=== PATIENT | female | born 1975 | race Caucasian/White ===

== ENCOUNTER 2017-08-14 13:10 | Emergency (ER) | payer BC, SELFPAY ==
[2017-08-14 13:24] VITALS: BP 124/75; PULSE 94; RESP 20; TEMP 36.8; O2SAT 98; BMI 25.6
--- NOTE | 2017-08-14 13:25 | XR_ITS ---
XR finger LT min 2V CLINICAL INDICATION: Post traumatic pain ITS.REASON: SLAMMED IN VAN DOOR ORDERING PHYSICIAN: Lula Hinkle PATIENT AGE: 42 years COMPARISON: None FINDINGS: No fracture or dislocation. No bony or joint abnormality. IMPRESSION: Negative left index finger
--- NOTE | 2017-08-14 13:32 | HMH.EDUTC ---
[facility] [place]ression: Finger injury Qualifiers: Encounter type: initial encounter Laterality: left Qualified Code(s): S69.92XA - Unspecified injury of left wrist, hand and finger(s), initial encounter Disposition: Home, Self-Care Condition on Discharge: Good Instructions: How To Perform RICE (Rest, Ice, Compress, Elevate), Finger Sprain, DI for Laceration Repair With Dermabond Additional Instructions: Follow up with family doctor if symptoms worsen REturn if needed Ice to area 20 minutes every two hours Over the counter Motrin or Tylenol as needed for pain Keep finger splint in place and do not get finger wet for at least 3-4 days and allow dermabond to seal skin Referrals: Randy Lanza MD [Staff Physician] - Alex Mcdonald MD [Staff Physician] - Forms: Work/School Release Time of Disposition: 15:00 Medical Decision Making - Medical Records Medical records reviewed: Yes: I reviewed the patient's medical records. Vital Signs: 08/14/17 13:24 08/14/17 14:27 Temperature 98.2 F 98.2 F Temperature Source Temporal Artery Scan Pulse Rate 88 Pulse Rate [Right] 94 H Respiratory Rate 20 20 Blood Pressure 122/74 Blood Pressure [Right Arm] 124/75 Blood Pressure Mean [Right Arm] 91 Blood Pressure Source [Right Arm] Automatic Cuff Blood Pressure Position [Right Arm] Sitting 02 Sat by Pulse Oximetry 98 Oxygen Delivery Method Room Air Orders (Tests/Meds): ORDERS Category Date Time Status Finger XR left minimum 2 views [XR finger LT min 2V] Exams 08/14/17 13:25 Taken Stat - Radiology Data #1 Image(s): Finger(s)/Thumb Image Reviewed: Yes I reviewed the patient's radiology image w/the ED provider Preliminary Findings: No Fracture Seen - Srinivas Inquiry Pt receiving controlled substance: No Srinivas was queried for this patient: No [facility] [place] - General Stated complaint: AO 08/14/17 poss broken left index finger Mode of Arrival: Ambulatory Source of Information: Patient Limitations: No Limitations Description of Symptoms (Recalled from Triage Doc. by RN): SHUT LEFT INDEX FINGER IN DOOR 20 MINS AGO HEENT Symptoms (Recalled from RN notes): No Resp Symptoms (Recalled from RN notes): No Skin Symptoms (Recalled from RN notes): No MS Symptoms (Recalled from RN notes): Yes Functional Status (Recalled from RN notes): N - History of Present Illness Provider Complaint: States that she was shutting her door when she was at [facility] and accidently shut her left index finger up in the door States that she immediately jerked her finger and removed it States that she noticed she had small laceration on the left knuckle area and having pain when she tries to move it State that she immediately got in the car and came up here to have it checked out - Related Data Home Medications Medication Instructions Recorded Confirmed Norgestimate-Ethinyl Estradiol 1 tab PO QDAY 08/14/17 08/14/17 [Sprintec 28 Day Tablet] Allergies Allergy/AdvReac Type Severity Reaction Status Date / Time No Known Allergies Allergy Verified 07/21/17 09:10 - Worker's Comp Is this a Worker's Comp case?: No [facility] History I have reviewed the patient's past medical history: Yes - *Social History Alcohol Intake: never - Psychiatric History Expresses thoughts of harming self/others: None Suicide Plan Description: No Plan ROS Obtained: Yes All systems reviewed & no additional complaints Physical Exam - General General appearance: alert, in no apparent distress - ENT ENT exam: Present: normal exam, normal oropharynx, mucous membranes moist, TM's normal bilaterally, normal external ear exam - Respiratory Respiratory exam: Present: normal lung sounds bilaterally. Absent: respiratory distress - Cardiovascular Cardiovascular exam: Present: regular rate, normal rhythm. Absent: JVD - Expanded Upper Extremity Exam Left Hand exam: Present: other (Pain swelling and small single la
[2017-08-14 14:27] VITALS: BP 122/74; PULSE 88; RESP 20; TEMP 36.8
== END 2017-08-14 15:05 | disposition home or self-care (01) ==
PROVIDERS: Emergency Provider Nurse Practitioner
DX: S67.191A Crushing injury of left index finger, initial encounter (principal); W23.0XXA Caught, crushed, jammed, or pinched between moving objects, initial encounter; Y92.512 Supermarket, store or market as the place of occurrence of the external cause
CPT/HCPCS: 73140; 90471; 90714; 99201

== ENCOUNTER → 2017-08-24 15:41 | Outpatient (CLI) | payer BC, SELFPAY ==
--- NOTE | 2017-08-24 15:43 | MM_ITS ---
MM Dig screening mamm BI w/CAD CAD Screening COMPARISON: Baseline mammogram 07/11/2016 and additional views right breast 07/25/2016 INDICATION: There is no personal or family history of breast cancer TECHNIQUE: Standard CC and MLO images were obtained. R2 CAD reviewed. FINDINGS: Moderate scattered fibroglandular densities are seen in both breast primarily upper outer quadrants. There are 2 mole markers right breast. There is no suspicious lesion and no suspicious microcalcifications. IMPRESSION: Fibrofatty parenchyma with no suspicious lesion seen BI-RADS Category: 2 Benign Finding(s) RECOMMENDED FOLLOW-UP: 1YR - 1 YEAR FOLLOW-UP (A letter has been sent to the patient regarding results of the study.)
== END ==
PROVIDERS: PCP Emergency Medicine; Visit Provider Nurse Practitioner Obstetrics & Gynecology
DX: Z12.31 Encounter for screening mammogram for malignant neoplasm of breast (principal)
CPT/HCPCS: 77067

== ENCOUNTER 2017-10-12 13:05 | Emergency (ER) | payer BC, SELFPAY ==
[2017-10-12 13:14] VITALS: BP 131/95; PULSE 98; RESP 20; TEMP 36.6; O2SAT 99; BMI 26.5
--- NOTE | 2017-10-12 13:19 | HMH.EDUTC ---
[facility] [place] Clinical Impression: UTI (urinary tract infection) Qualifiers: Urinary tract infection type: acute cystitis Hematuria presence: with hematuria Qualified Code(s): N30.01 - Acute cystitis with hematuria Disposition: Home, Self-Care Condition on Discharge: Good Instructions: DI for Urinary Tract Infection (UTI) Additional Instructions: Increase fluids, urinate frequently. RTC or PCP if fever, vomiting, severe pain Prescriptions: Ciprofloxacin HCl [Ciprofloxacin 500mg Tab] 500 mg PO BID 5 Days #10 tab Phenazopyridine HCl [Pyridium 200mg Tablet] 200 mg PO Q8HP PRN 2 Days #6 tab PRN Reason: pain Referrals: Enrrique Muñoz MD [Primary Care Provider] - Time of Disposition: 13:27 Medical Decision Making - Srinivas Inquiry Pt receiving controlled substance: No Vital Signs: 10/12/17 13:14 Temperature 98 F Temperature Source Temporal Artery Scan Pulse Rate [Brachial] 98 H Respiratory Rate 20 Blood Pressure [Right Arm] 131/95 Blood Pressure Mean [Right Arm] 107 Blood Pressure Position [Right Arm] Sitting 02 Sat by Pulse Oximetry 99 Oxygen Delivery Method Room Air - Lab Data Lab results reviewed: Yes: I reviewed the patient's lab results. [facility] [place] HPI - General Stated complaint: Poss UTI Time Seen by Provider: 10/12/17 13:19 Mode of Arrival: Ambulatory Source of Information: Patient Limitations: No Limitations Description of Symptoms (Recalled from Triage Doc. by RN): URINARY URGENCY, FREQUENCY AND BURNING WITH URINATION SINCE Monday Symptoms (Recalled from RN notes): No Resp Symptoms (Recalled from RN notes): No Skin Symptoms (Recalled from RN notes): No MS Symptoms (Recalled from RN notes): No Functional Status (Recalled from RN notes): NA - History of Present Illness Provider Complaint: Dysuria, frequency and urgency X 2 days. No fever. No hematuria. No nausea or vomiting. Onset (ago): day(s) (2) Quality: burning Relieving factors: none Exacerbating factors: none Associated symptoms: denies other symptoms Treatments prior to arrival: none - Related Data Home Medications Medication Instructions Recorded Confirmed Norgestimate-Ethinyl Estradiol 1 tab PO QDAY 08/14/17 08/14/17 [Sprintec 28 Day Tablet] Previous Rx's Medication Instructions Recorded Ciprofloxacin HCl [Ciprofloxacin 500 mg PO BID 5 Days #10 tab 10/12/17 500mg Tab] Phenazopyridine HCl [Pyridium 200 mg PO Q8HP PRN 2 Days #6 tab 10/12/17 200mg Tablet] Allergies Allergy/AdvReac Type Severity Reaction Status Date / Time No Known Allergies Allergy Verified 08/29/17 15:05 - Worker's Comp Is this a Worker's Comp case?: No H History I have reviewed the patient's past medical history: Yes - Social History Smoking Status: Never smoker Alcohol Intake: never - Psychiatric History Expresses thoughts of harming self/others: None Suicide Plan Description: No Plan ROS Obtained: Yes All systems reviewed & no additional complaints - Genitourinary Male Genitourinary: Denies hematuria, Reports urinary frequency, Reports urinary urgency Physical Exam - General General appearance: alert, in no apparent distress - Head Head exam: atraumatic, normocephalic - Chest Chest inspection: Present: normal inspection, symmetric chest wall rise - Respiratory Respiratory exam: Present: normal lung sounds bilaterally - Cardiovascular Cardiovascular exam: Present: regular rate, normal rhythm - Abdominal Exam Abdominal exam: Present: soft, tenderness (suprapubic) Abdominal tenderness: Present: suprapubic, mild - Extremities Exam Extremities exam: Present: normal inspection, full ROM - Back Exam Back exam: Absent: CVA tenderness (R), CVA tenderness (L) - Neurological Exam Neurological exam: Present: alert, oriented X3 - Psychiatric Psychiatric exam: Present: normal affect, normal mood - Skin Skin exam: Present: warm, dry
--- NOTE | 2017-10-12 13:24 | ED_ITS ---
[facility] [place] Impression: UTI (urinary tract infection) Qualifiers: Urinary tract infection type: acute cystitis Hematuria presence: with hematuria Qualified Code(s): N30.01 - Acute cystitis with hematuria Disposition: Home, Self-Care Condition on Discharge: Good Instructions: DI for Urinary Tract Infection (UTI) Additional Instructions: Increase fluids, urinate frequently. RTC or PCP if fever, vomiting, severe pain Prescriptions: Ciprofloxacin HCl [Ciprofloxacin 500mg Tab] 500 mg PO BID 5 Days #10 tab Phenazopyridine HCl [Pyridium 200mg Tablet] 200 mg PO Q8HP PRN 2 Days #6 tab PRN Reason: pain Referrals: Enrrique Muñoz MD [Primary Care Provider] - Time of Disposition: 13:27 Medical Decision Making - Srinivas Inquiry Pt receiving controlled substance: No Vital Signs: 10/12/17 13:14 Temperature 98 F Temperature Source Temporal Artery Scan Pulse Rate [Brachial] 98 H Respiratory Rate 20 Blood Pressure [Right Arm] 131/95 Blood Pressure Mean [Right Arm] 107 Blood Pressure Position [Right Arm] Sitting 02 Sat by Pulse Oximetry 99 Oxygen Delivery Method Room Air - Lab Data Lab results reviewed: Yes: I reviewed the patient's lab results. [facility] [place] - General Stated complaint: Poss UTI Time Seen by Provider: 10/12/17 13:19 Mode of Arrival: Ambulatory Source of Information: Patient Limitations: No Limitations Description of Symptoms (Recalled from Triage Doc. by RN): URINARY URGENCY, FREQUENCY AND BURNING WITH URINATION SINCE Monday Symptoms (Recalled from RN notes): No Resp Symptoms (Recalled from RN notes): No Skin Symptoms (Recalled from RN notes): No MS Symptoms (Recalled from RN notes): No Functional Status (Recalled from RN notes): NA - History of Present Illness Provider Complaint: Dysuria, frequency and urgency X 2 days. No fever. No hematuria. No nausea or vomiting. Onset (ago): day(s) (2) Quality: burning Relieving factors: none Exacerbating factors: none Associated symptoms: denies other symptoms Treatments prior to arrival: none - Related Data Home Medications Medication Instructions Recorded Confirmed Norgestimate-Ethinyl Estradiol 1 tab PO QDAY 08/14/17 08/14/17 [Sprintec 28 Day Tablet] Previous Rx's Medication Instructions Recorded Ciprofloxacin HCl [Ciprofloxacin 500 mg PO BID 5 Days #10 tab 10/12/17 500mg Tab] Phenazopyridine HCl [Pyridium 200 mg PO Q8HP PRN 2 Days #6 tab 10/12/17 200mg Tablet] Allergies Allergy/AdvReac Type Severity Reaction Status Date / Time No Known Allergies Allergy Verified 08/29/17 15:05 - Worker's Comp Is this a Worker's Comp case?: No [facility] History I have reviewed the patient's past medical history: Yes - Social History Smoking Status: Never smoker Alcohol Intake: never - Psychiatric History Expresses thoughts of harming self/others: None Suicide Plan Description: No Plan ROS Obtained: Yes All systems reviewed & no additional complaints - Genitourinary Male Genitourinary: Denies hematuria, Reports urinary frequency, Reports urinary urgency Physical Exam - General General appearance: alert, in no apparent distress - Head Head exam: atraumatic, normocephalic - Chest Chest inspection: Present: normal inspection
[2017-10-12 13:30] LABS: Apearance,Urine Clear (Clear); Color,Urine Yellow (Yellow)
[2017-10-12 13:31] LABS: Bilirubin,Urine Negative (Negative); Blood, Urine 3+ (Negative); Glucose,Urine (UA) Negative (Negative); Ketones,Urine Negative (Negative); Protein,Urine 2+ (Negative); Urobilinogen,Urine 0.2 EU/dl (0.2)
[2017-10-12 13:32] VITALS: BP 131/95; PULSE 98; RESP 20; TEMP 36.6; O2SAT 99
[2017-10-12 13:32] LABS: UTC Leukocyte Esterase,Urine 1+ (Negative); UTC Nitrate,Urine Negative (Negative)
== END 2017-10-12 13:35 | disposition home or self-care (01) ==
PROVIDERS: Emergency Provider Physician Assistant; PCP Emergency Medicine
DX: N30.01 Acute cystitis with hematuria (principal)
CPT/HCPCS: 81003; 99201

== ENCOUNTER → 2018-11-12 16:43 | Outpatient (CLI) | payer BC, SELFPAY ==
--- NOTE | 2018-11-12 16:46 | MM_ITS ---
MM Dig screening mamm BI w/CAD CAD Screening COMPARISON: Digital mammograms with CAD 08/24/2017 and 07/11/2016 INDICATION: There is no personal or family history of breast cancer TECHNIQUE: Standard CC and MLO images were obtained. R2 CAD reviewed. FINDINGS: Moderate diffuse fibroglandular densities are seen in both breasts. There are 2 mole markers right breast. There is no suspicious lesion and there are no suspicious microcalcifications. IMPRESSION: Moderate breast density with no suspicious lesion seen BI-RADS Category: 1 Negative RECOMMENDED FOLLOW-UP: 1YR - 1 YEAR FOLLOW-UP (A letter has been sent to the patient regarding results of the study.)
== END ==
PROVIDERS: PCP Family Medicine; Visit Provider Nurse Practitioner Obstetrics & Gynecology
DX: Z12.31 Encounter for screening mammogram for malignant neoplasm of breast (principal)
CPT/HCPCS: 77067

== ENCOUNTER → 2019-01-24 17:19 | Outpatient (CLI) | payer BC, SELFPAY ==
[2019-01-24 17:51] LABS: Basophils % 0.5 % (0.1-2.0); Eosinophils # 0.1 K/mm3 (0.0-0.4); Eosinophils % 0.9 % (0.1-12.0); Hematocrit 39.9 % (37.0-47.0); Hemoglobin 12.7 g/dL (12.2-16.2); Lymphocytes # 1.6 K/mm3 (0.7-4.5); Lymphocytes % 20.8 % (10-50); Mean Corpuscular HGB Conc 31.7 g/dL (31.8-35.4); Mean Corpuscular Hemoglobin 27.5 pg (27.0-31.2); Mean Corpuscular Volume 86.5 fl (81-99); Monocytes # 0.5 K/mm3 (0.1-1.0); Monocytes % 6.1 % (1.7-9.3); Neutrophils # 5.5 K/mm3 (1.8-7.8); Neutrophils % 71.6 % (37.0-80.0); Platelet Count 424 K/mm3 (142-424); Red Blood Count 4.61 M/mm3 (4.20-5.40); Red Cell Distribution Width 13.7 % (11.5-17.5); White Blood Count 7.6 K/mm3 (4.8-10.8)
[2019-01-24 18:22] LABS: Alanine Aminotransferase 18 U/L (12-78); Albumin Level 3.2 gm/dL (3.4-5.0); Albumin/Globulin Ratio 0.8 (1.1-1.8); Alkaline Phosphatase 94 U/L (46-116); Anion Gap 12.5 mEq/L (5-15); Aspartate Amino Transferase 10 U/L (15-37); Bilirubin,Total 0.2 mg/dL (0.2-1.0); Blood Urea Nitrogen 14 mg/dL (7-18); Calcium 8.9 mg/dL (8.5-10.1); Carbon Dioxide 26 mmol/L (21.0-32.0); Chloride 107 mmol/L (98-107); Chol/HDL Ratio 3.4 (1-3.5); Cholesterol 203 mg/dL (140-200); Creatinine,Serum 0.86 mg/dL (0.55-1.02); Estimated Glomerular Filt Rate 72 ml/min (>60); GFR (African American) 87 ML/MIN (>60); Globulin 3.9 gm/dl (1.3-3.2); Glucose 89 mg/dL (74-106); HDL Cholesterol 60 mg/dL (29-89); LDL Cholesterol 118 mg/dL (0-130); Potassium 4.5 mmoL/L (3.5-5.1); Sodium 141 mmol/L (136-145); T4 (Thyroxine) 9.2 ug/dl (4.7-13.3); Total Protein,Serum 7.1 gm/dL (6.4-8.2); Triglycerides 125 mg/dL (30-200); VLDL Cholesterol 25 mg/dL (0-40)
[2019-01-26 18:14] LABS: Vitamin D 25 Hydroxy 31.2 ng/mL (30.0-100.0)
== END ==
PROVIDERS: Visit Provider Nurse Practitioner Family
DX: R53.83 Other fatigue (principal)
CPT/HCPCS: 80053; 80061; 82652; 84436; 84443; 85025

== ENCOUNTER → 2020-01-21 09:26 | Outpatient (CLI) | payer BC, SELFPAY ==
--- NOTE | 2020-01-21 09:26 | MM_ITS ---
PROCEDURE: MM DIG SCREENING MAMM BI W/CAD Digital Breast Tomosynthesis Included CLINICAL INDICATION: Routine Screening Mammogram There is no personal or family history of breast cancer. COMPARISON: DMDXUWAR DIG MAMM-DX UNI RT W/AV W/CAD from 07/25/2016 [facility] MM Dig screening mamm BI w/CAD from 08/24/2017 DIG MAMM-SCREEN JONEL from 11/12/2018 TECHNIQUE: Standard CC and MLO images and 3D Tomosynthesis was obtained. R2 CAD reviewed. FINDINGS: Moderate diffuse fibroglandular densities are seen throughout both breast primarily upper outer quadrants. The findings are fairly symmetrical bilaterally. There is a possible new somewhat lobulated density just deep to the nipple right breast best seen on the MLO view. Recommend the patient return for spot compression views and ultrasound for better evaluation. There are no suspicious microcalcifications in either breast. IMPRESSION: Moderate breast density with possible new developing lesion deep to the nipple right breast BI-RAD Category: 0 Need Additional Imaging Evaluation FOLLOW-UP: IMM Immediate Follow-up Recommended (A letter has been sent to the patient regarding results of the study.) Dictated by: Dr. Joe Beverly MD 01/23/2020 07:[address] Joe Beverly MD in [place] 01/23/2020 07:09
== END ==
PROVIDERS: PCP Family Medicine; Visit Provider Obstetrics & Gynecology
DX: Z12.31 Encounter for screening mammogram for malignant neoplasm of breast (principal)
CPT/HCPCS: 77063; 77067

== ENCOUNTER → 2020-02-03 13:38 | Outpatient (CLI) | payer BC, SELFPAY ==
--- NOTE | 2020-02-03 | US_ITS ---
PROCEDURE: MM DIG MAMM DX UNILAT RT CAD Digital Breast Tomosynthesis Included CLINICAL INDICATION: Dx Bilateral Mammogram-Abnormal Mamm COMPARISON: MG [facility] MM Dig screening mamm BI w/CAD from 08/24/2017 MG DIG MAMM-SCREEN JONEL from 11/12/2018 MG MM DIG SCREENING MAMM BI W/CAD from 01/21/2020 US US BREAST RT COMPLETE from 02/03/2020 TECHNIQUE: Spot views along with right breast ultrasound FINDINGS: Average fibroglandular tissue. No discrete nodule evident. The area of asymmetric density does appear to compress out on focal spot compression views. Right breast ultrasound: No discrete cystic or solid lesions evident. IMPRESSION: BI-RAD Category: 3 Probably Benign Finding Short Term Follow-up FOLLOW-UP: 6M 6Month Follow-up (A letter has been sent to the patient regarding results of the study.) Dictated b Chad Bell MD 02/13/2020 18:01 Chad Bell MD in [place] 02/13/2020 18:01
== END ==
PROVIDERS: PCP Family Medicine; Visit Provider Obstetrics & Gynecology
DX: R92.8 Other abnormal and inconclusive findings on diagnostic imaging of breast (principal)
CPT/HCPCS: 76641; 77061; 77065; G0279

== ENCOUNTER → 2020-08-12 13:44 | Outpatient (CLI) | payer BC, SELFPAY ==
--- NOTE | 2020-08-12 13:44 | MM_ITS ---
PROCEDURE: MM DIG MAMM DX UNILAT RT CAD Digital Breast Tomosynthesis Included CLINICAL INDICATION: Abnormal Mamm COMPARISON: MG DIG MAMM-SCREEN JONEL from 11/12/2018 MG MM DIG SCREENING MAMM BI W/CAD from 01/21/2020 MG MM DIG MAMM DX UNILAT RT CAD from 02/03/2020 TECHNIQUE: Standard CC and MLO images and 3D Tomosynthesis was obtained. R2 CAD reviewed. Spot compression in MLO and CC views were obtained as well. FINDINGS: Scattered fibroglandular densities are seen in the subareolar region and central portion of the breast. There is no persistent or suspicious asymmetric density in the subareolar region, the questionable asymmetric density on mammogram 01/21/2020 is not seen on today's study. There are no suspicious microcalcifications. IMPRESSION: Essentially unremarkable six-month follow-up exam with no suspicious lesions seen BI-RAD Category: 1 Negative FOLLOW-UP: 6M 6Month Follow-up to return to normal yearly screening schedule (A letter has been sent to the patient regarding results of the study.) Dictated by: Dr. Joe Beverly MD 08/18/2020 15:40 Dr. Joe Beverly MD in [place] 08/18/2020 15:40
--- NOTE | 2020-08-12 13:44 | US_ITS ---
PROCEDURE: US BREAST RT COMPLETE CLINICAL INDICATION: Abnormal mamm COMPARISON: US US BREAST RT COMPLETE from 02/03/2020 FINDINGS: Ultrasound survey of the entire breast shows no suspicious cystic or solid lesion. There are no findings to suggest architectural distortion. There are normal appearing nodes in the axilla. IMPRESSION: Unremarkable ultrasound right breast Dictated by: Dr. Joe Beverly MD 08/21/2020 11:15 Dr. Joe Beverly MD in [place] 08/21/2020 11:15
== END ==
PROVIDERS: PCP Family Medicine; Visit Provider Obstetrics & Gynecology
DX: R92.8 Other abnormal and inconclusive findings on diagnostic imaging of breast (principal)
CPT/HCPCS: 76641; 77061; 77065; G0279

== ENCOUNTER → 2020-10-27 15:51 | Outpatient (POV) | payer BC, SELFPAY | PROVIDERS: Visit Provider Dermatology | DX: Z00.00 Encounter for general adult medical examination without abnormal findings (principal) ==

== ENCOUNTER → 2021-01-30 09:52 | Outpatient (CLI) | payer BC, SELFPAY ==
[2021-01-30 10:13] LABS: Urine Pregnancy, HCG Qual. Negative (Negative)
== END ==
PROVIDERS: Visit Provider Internal Medicine Gastroenterology
DX: Z01.812 Encounter for preprocedural laboratory examination (principal); Z11.52 Encounter for screening for COVID-19; Z13.810 Encounter for screening for upper gastrointestinal disorder
CPT/HCPCS: 81025; U0003

== ENCOUNTER 2021-02-01 08:02 | Day surgery (SDC) | payer BC, SELFPAY ==
[2021-02-01] VITALS (7 sets, daily range): BP systolic 97–125; BP diastolic 60–83; PULSE 60–78; RESP 18; TEMP 36.2–36.3; O2SAT 95–100; BMI 31.1
--- NOTE | 2021-02-01 09:25 | HMH.ANESCL ---
[facility] Anesthesia Checklist - Patient Identification Patient Identification: Arm Band - Structural Data Admitted From: Home Planned Operative Procedure/s: egd Consent for Planned Operative Procedure(s) Verified: Yes Verified Documents: Surgical Consent, History and Physical - NPO Status Verified Time NPO: 00:00 - Additional verifications Anesthesia Reactions: No - Airway Assessment C-Spine Mobility Assessed: Yes (mp2) TMJ Mobility Assessed: Yes Dentition: Good Dentition - Neurological Assessment Level of Consciousness: Awake, Alert - Anesthesia Plan Anesthesia Risk discussed: Yes Anesthesia Plan: Verified ASA Class: II Anesthesia Type: MAC [facility] History I have reviewed the patient's past medical history: Yes Medical History: Reports:: Gastroesophageal Reflux Disease(GERD) Denies:: Cancer, Chronic Obstructive Pulmonary Disease (COPD), Diabetes Mellitus Type 1, Diabetes Mellitus Type 2, Hypertension, Internal Pacemaker, MRSA, Seizures, Transient Ischemic Attacks (TIA) *Have you ever received a pneumonia vaccine?: No *Have you received a flu vaccine this season?: No Other Medical History: Denies: Thyroid Disease Anesthesia experience/problems:: nac Other Surgeries: Yes: No Previous Surgery. No: Pacemaker Amputation: No Fractures: Yes - *Social History Last grade of school completed: Some college Smoking Status: Never smoker Alcohol Intake: never Substance Use Type: denies use *Occupational Status:: employed Housing: house *Travel in the last 8 weeks: None Family Hx:: Cancer
--- NOTE | 2021-02-01 09:41 | HMH.PROC ---
[facility] Procedure Note Procedure Note:: Upper Endoscopy Procedure Report: Esophagogastroduodenoscopy with cold biopsies Endoscopost: Matthieu Douglas II, MD Referring Physician: Jg Green MD Date of Procedure: February 01, 2021 Equipment: Olympus GIF 190 standard upper endoscope Sedation: MAC sedation Indications: Mrs. Maria is a 45-year-old female that reports postprandial regurgitation that has been going on for nearly a year. She states that this occurs no matter what food that she eats and she has kept a food diary. She does state that this occurs intermittently and randomly. She will have excessive belching and involuntary regurgitation. She reports no abdominal pain or nausea but does have some early satiety. She does have some bloating on exam. She does have a history of chronic constipation and may skip 3 or 4 days without a bowel movement. She has tried IBgard which helped a little bit. This is her first upper endoscopy. Procedure: Prior to the procedure, a history and physical exam was performed, and patient's medications and allergies were reviewed. The risks, benefits and alternatives of the sedation and procedure were discussed with the patient. All questions were answered and informed consent was obtained. The patient was brought to the procedure room. Patient identification and proposed procedure were verified by the physician and the nurse. The patient was placed in a left lateral decubitus position and the scope was passed under direct vision. Throughout the procedure, the patient's blood pressure, pulse, and oxygen saturations were monitored continuously. The upper GI endoscopy was accomplished without difficulty. The patient tolerated the procedure well. Findings: The scope was passed directly into the upper esophagus and advanced to the third portion of the duodenum. The post bulbar duodenum and duodenal bulb were normal with normal mucosa and conniventes. Cold biopsies were taken from the post bulbar duodenum to rule out celiac disease. The scope was withdrawn through a normal duodenal bulb and pylorus into the stomach. There was linear reactive gastropathy of the antrum. The remainder of the body and fundus of the stomach were grossly normal. Upon retroflexion there was very small sliding 1 to 2 cm hiatal hernia. 2 biopsies were taken in the antrum and along the lesser curvature for histology to rule out gastritis and/or H pylori. The scope was then withdrawn into the esophagus. There was no evidence of reflux esophagitis or Conn's. There was a serrated Z-line suggestive of nonerosive GERD. Biopsies were taken at the GE junction. There were some tertiary contractions and mild esophageal dysmotility. The remainder of the esophageal mucosa was normal. Impression: 1. Nonerosive GERD with mild esophageal dysmotility and very small sliding hiatal hernia 2. Linear reactive gastropathy of antrum Plan: I will follow-up the biopsies. I do feel that her postprandial regurgitation is related to gas pressure gradients from obstipation/excessive colonic fermentation (colonic bacterial overgrowth). I do feel that this is secondary to incomplete defecation/constipation and dietary factors. We will discuss treatment options.
== END 2021-02-01 10:45 | disposition home or self-care (01) ==
LOC: OUTP 08:08
PROVIDERS: PCP Family Medicine; Visit Provider Internal Medicine Gastroenterology
PROC: 0DJ08ZZ Inspection of Upper Intestinal Tract, Via Natural or Artificial Opening Endoscopic (ICD-10-PCS; CPT 43235; principal; 2021-02-01 09:30)
DX: K21.9 Gastro-esophageal reflux disease without esophagitis (principal); K22.4 Dyskinesia of esophagus; K44.9 Diaphragmatic hernia without obstruction or gangrene; K31.9 Disease of stomach and duodenum, unspecified; Z80.9 Family history of malignant neoplasm, unspecified
CPT/HCPCS: 43239

== ENCOUNTER → 2021-02-10 13:45 | Outpatient (CLI) | payer BC, SELFPAY ==
--- NOTE | 2021-02-10 13:46 | MM_ITS ---
PROCEDURE INFORMATION: Exam: MG Screening 3D Mammography Exam date and time: 02/10/2021 1:46 PM Age: 45 years old Clinical indication: screening mammogram TECHNIQUE: Imaging protocol: Screening tomosynthesis and 2D mammography including computer-aided detection (CAD) when performed. COMPARISON: 1. MG MM DIG MAMM DX UNILAT RT CAD 08/12/2020 1:55 PM 2. MG MM DIG MAMM DX UNILAT RT CAD 02/03/2020 1:40 PM 3. MG MM DIG SCREENING MAMM BI W/CAD 01/21/2020 9:35 AM 4. MG DIG MAMM-SCREEN JONEL 11/12/2018 4:50 PM FINDINGS: MAMMOGRAPHY: Breast composition: There are scattered areas of fibroglandular density. Mass: None. Architectural distortion: No new or suspicious architectural distortion. Calcifications: No new or suspicious calcifications are present Asymmetric density: No new or suspicious asymmetric density is present Skin thickening: None. Axillary adenopathy: None. IMPRESSION: No mammographic evidence of malignancy. Recommend annual screening mammography unless otherwise clinically indicated. ASSESSMENT: BI-RADS category 1: Negative
== END ==
PROVIDERS: PCP Family Medicine; Visit Provider Obstetrics & Gynecology
DX: R92.8 Other abnormal and inconclusive findings on diagnostic imaging of breast (principal)
CPT/HCPCS: 77063; 77067

== ENCOUNTER 2021-09-04 08:59 | Emergency (ER) | payer BC, SELFPAY ==
[2021-09-04 09:12] VITALS: BP 140/87; PULSE 80; RESP 16; TEMP 36.9; O2SAT 98; BMI 29.6
[2021-09-04 09:32] LABS: UTC Strep Screen (Rapid) Negative (Negative)
--- NOTE | 2021-09-04 10:06 | HMH.EDUTC ---
[facility] [place] Clinical Impression: COVID-19 Disposition: Home, Self-Care Condition on Discharge: Good Instructions: DI for COVID-19 (Suspected or Confirmed ), Preventing the Spread of Coronavirus Discharge Instructions Additional Instructions: Drink plenty of fluids. Take tylenol or ibuprofen for pain or fever. Take the medications as directed. Follow up with your regular doctor. GO TO THE ER FOR ANY WORSENING SYMPTOMS Notify your school or workplace of your results and follow their instructions regarding return to work/school. The cough medication (promethazine dm) will make you drowsy, so don't drive or operate heavy machinery after taking it. Prescriptions: Promethazine/Dextromethorphan [Promethazine-Dm Syrup] 5 ml PO Q6HP PRN #180 ml PRN Reason: Cough Transmission Status: Received by [facility] Ondansetron [Zofran 4mg ODT] 4 mg PO Q8HP PRN #20 tab PRN Reason: Nausea Transmission Status: Received by [facility] Referrals: Jg Green MD [Primary Care Provider] - Time of Disposition: 10:09 Medical Decision Making - Medical Records Medical records reviewed: No: I reviewed the patient's medical records. - Srinivas Inquiry Pt receiving controlled substance: No Vital Signs: 09/04/21 09:12 09/04/21 10:14 Temperature 98.4 F 98.4 F Temperature Source Oral Pulse Rate 80 Pulse Rate [Left] 80 Respiratory Rate 16 16 Blood Pressure 140/87 Blood Pressure [Right Arm] 140/87 Blood Pressure Mean [Right Arm] 104 02 Sat by Pulse Oximetry 98 - Lab Data Lab Results 09/04/21 09:24: Strep [facility] Negative Orders (Tests/Meds): ORDERS Category Date Time Status Strep Screen Confirmation Stat Micro 09/04/21 09:24 Received [facility] [place] - General Stated complaint: covid symptoms Time Seen by Provider: 09/04/21 09:25 Mode of Arrival: Ambulatory Source of Information: Patient Limitations: No Limitations Description of Symptoms (Recalled from Triage Doc. by RN): pt had a positive at home covid test this am. HEENT Symptoms (Recalled from RN notes): Yes Resp Symptoms (Recalled from RN notes): Yes Skin Symptoms (Recalled from RN notes): No MS Symptoms (Recalled from RN notes): No Functional Status (Recalled from RN notes): wnl - Related Data Home Medications Medication Instructions Recorded Confirmed sumatriptan succinate 100 mg tablet 100 mg PO DAILY 01/21/20 Trazodone HCl 50 mg PO DAILY 02/01/21 02/01/21 Previous Rx's Medication Instructions Recorded Ondansetron [Zofran 4mg ODT] 4 mg PO Q8HP PRN #20 tab 09/04/21 Promethazine/Dextromethorphan 5 ml PO Q6HP PRN #180 ml 09/04/21 [Promethazine-Dm Syrup] Allergies Allergy/AdvReac Type Severity Reaction Status Date / Time No Known Allergies Allergy Verified 09/10/20 15:55 - Worker's Comp Is this a Worker's Comp case?: No [facility] History - Hepatitis A Screen Drug use history?: No High risk sexual behaviors?: No History of sexually transmitted infection?: No Currently employed?: No Childcare worker?: No Do you have indoor plumbing?: Yes Do you have electricity?: Yes Attestation statement:: This patient has been screened for Hepatitis A risk factors. I have reviewed the patient's past medical history: Yes Medical History: Reports:: Gastroesophageal Reflux Disease(GERD) Denies:: Cancer, Chronic Obstructive Pulmonary Disease (COPD), Diabetes Mellitus Type 1, Diabetes Mellitus Type 2, Hypertension, Internal Pacemaker, MRSA, Seizures, Transient Ischemic Attacks (TIA) Other Medical History: Denies: Thyroid Disease Other Surgeries: Yes: No Previous Surgery. No: Pacemaker Amputation: No Fractures: Yes - Social History Smoking Status: Never smoker Alcohol Intake: never Substance Use Type: denies use Occupational Status: employed Housing: house Family Hx:: Cancer ROS Obtained: Yes All systems reviewed & no additional complaints - Constitutional
[2021-09-04 10:14] VITALS: BP 140/87; PULSE 80; RESP 16; TEMP 36.9
== END 2021-09-04 10:15 | disposition home or self-care (01) ==
PROVIDERS: Emergency Provider Nurse Practitioner Family; PCP Family Medicine
DX: U07.1 COVID-19 (principal); J02.9 Acute pharyngitis, unspecified; K21.9 Gastro-esophageal reflux disease without esophagitis
CPT/HCPCS: 87880; 99202; G0463

== ENCOUNTER → 2022-02-11 09:46 | Outpatient (CLI) | payer BC, SELFPAY ==
--- NOTE | 2022-02-11 09:47 | MM_ITS ---
PROCEDURE INFORMATION: Exam: MG Bilateral Screening 3D Mammography Exam date and time: 02/11/2022 9:42 AM Age: 46 years old Clinical indication: Screening examination TECHNIQUE: Imaging protocol: Bilateral Screening tomosynthesis and 2D mammography including computer-aided detection (CAD) when performed. COMPARISON: 1. MG MM DIG SCREENING MAMM BI W/CAD 02/10/2021 2:00 PM 2. MG MM DIG MAMM DX UNILAT RT CAD 08/12/2020 1:55 PM FINDINGS: MAMMOGRAPHY: Breast composition: There are scattered areas of fibroglandular density. Mass: None. Architectural distortion: None. Calcifications: No suspicious calcifications. Asymmetric density: None. Skin thickening: None. Axillary adenopathy: None. IMPRESSION: No mammographic evidence of malignancy. Annual screening is recommended unless otherwise clinically indicated. ASSESSMENT: BI-RADS Category 1: Negative
== END ==
PROVIDERS: PCP Family Medicine; Visit Provider Obstetrics & Gynecology
DX: Z12.31 Encounter for screening mammogram for malignant neoplasm of breast (principal)
CPT/HCPCS: 77063; 77067

== ENCOUNTER → 2022-04-22 10:56 | Outpatient (CLI) | payer BC, SELFPAY ==
[2022-04-22 11:03] LABS: MANUAL DIFFERENTIAL MANUAL DIFFERENTIAL (MANUAL DIFF)
[2022-04-22 11:21] LABS: Basophils # 0.1 K/mm3 (0-0.2); Basophils % 1.1 % (0.1-2.0); Eosinophils # 0.1 K/mm3 (0.0-0.4); Eosinophils % 1.2 % (0.1-12.0); Hematocrit 41.5 % (37.0-47.0); Lymphocytes # 1.5 K/mm3 (0.7-4.5); Lymphocytes % 22.4 % (10-50); Mean Corpuscular HGB Conc 31.3 g/dL (31.8-35.4); Mean Corpuscular Hemoglobin 27.8 pg (27.0-31.2); Mean Corpuscular Volume 88.7 fl (81-99); Mean Platelet Volume 12.7 fl (7.4-10.4); Monocytes # 0.4 K/mm3 (0.1-1.0); Monocytes % 6.3 % (1.7-9.3); Neutrophils # 4.5 K/mm3 (1.8-7.8); Neutrophils % 69.1 % (37.0-80.0); Platelet Count 417 K/mm3 (142-424); Red Blood Count 4.68 M/mm3 (4.20-5.40); Red Cell Distribution Width 17.5 % (11.5-17.5); White Blood Count 6.5 K/mm3 (4.8-10.8)
[2022-04-22 11:55] LABS: Alanine Aminotransferase 13 U/L (12-78); Albumin/Globulin Ratio 1.4 (1.1-1.8); Alkaline Phosphatase 111 U/L (38-126); Aspartate Amino Transferase 18 U/L (14-36); Bilirubin,Total 0.3 mg/dl (0.2-1.3); Blood Urea Nitrogen 14 mg/dl (7-17); Calcium 8.8 mg/dl (8.4-10.2); Carbon Dioxide 26 mmol/L (22.0-30.0); Chloride 105 mmol/L (98-107); Chol/HDL Ratio 3.4 (1-3.5); Cholesterol 171 mg/dl (140-200); Estimated Glomerular Filt Rate 108 ml/min (>60); GFR (African American) 130 ML/MIN (>60); Globulin 2.9 g/dL (1.3-3.2); Glucose 88 mg/dl (74-100); HDL Cholesterol 50 mg/dl (40-60); Sodium 139 mmol/L (136-145); Total Protein,Serum 6.9 g/dl (6.3-8.2); Triglycerides 96 mg/dl (30-150); VLDL Cholesterol 19 mg/dL (0-40)
[2022-04-22 12:26] LABS: Thyroid Stimulating Hormone 1.45 uIU/mL (0.465-4.68)
[2022-04-22 12:40] LABS: Anion Gap 12.6 mEq/L (5-15); Potassium 4.6 mmoL/L (3.5-5.1)
[2022-04-22 13:02] LABS: Vitamin B12 454 pg/mL (239-931)
[2022-04-22 13:10] LABS: Folate 8.29 ng/mL
[2022-04-22 14:43] LABS: Eosinophils % 1 % (0-3); Lymphocytes % 18 % (10-50); Monocytes % 3 % (2-9); Neutrophils % 78 % (42-76); Total Cells Counted 100
[2022-04-22 14:44] LABS: Platelet Estimate Normal; RBC Morphology Normal
== END ==
PROVIDERS: PCP Family Medicine; Visit Provider Family Medicine
DX: R53.83 Other fatigue (principal); G43.909 Migraine, unspecified, not intractable, without status migrainosus; Z13.220 Encounter for screening for lipoid disorders; K21.9 Gastro-esophageal reflux disease without esophagitis; G47.00 Insomnia, unspecified
CPT/HCPCS: 36415; 80053; 80061; 82607; 82746; 84443; 85007; 85014; 85018; 85048; 85049

== ENCOUNTER → 2022-06-16 08:18 | Outpatient (CLI) | payer BC, SELFPAY ==
--- NOTE | 2022-06-16 08:19 | US_ITS ---
FINAL REPORT CLINICAL HISTORY: GERD FINDINGS: Ultrasound images of the right upper quadrant were obtained. The pancreas is partially obscured. The liver parenchyma is normal in echogenicity. The gallbladder is well visualized and the wall appears normal. There are multiple gallstones. The common duct is normal. Limited images of the right kidney are unremarkable. IMPRESSION: Cholelithiasis. Reviewed, Interpreted and Dictated by Dorian Jones III, MD Transcribed by Geovany Hernandez Authenticated and [facility]
== END ==
PROVIDERS: PCP Family Medicine; Visit Provider Family Medicine
DX: K21.9 Gastro-esophageal reflux disease without esophagitis (principal)
CPT/HCPCS: 76705

== ENCOUNTER → 2022-06-29 09:43 | Outpatient (CLI) | payer BC, SELFPAY ==
--- NOTE | 2022-06-29 09:46 | NM_ITS ---
FINAL REPORT TECHNIQUE: 0.55 Millicuries of technetium 99m sulfur colloid was ingested with eggs. CLINICAL HISTORY: reflux 10:00 am .55 [facility] sulfur colloid injected into 2 whole eggs 2 toast with butter 6 oz cup of water FINDINGS: GASTRIC EMPTYING SCAN Static images show normal emptying of the stomach into the small bowel. Based on the time activity curve, the estimated half-emptying time is 122 minutes. IMPRESSION: Abnormally along gastric emptying study. Reviewed, Interpreted and Dictated by Dorian Jones III, MD Transcribed by Geovany Hernandez Authenticated and [facility]
--- NOTE | 2022-06-29 10:19 | HMH.ITSHM ---
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 []UBROGEPANT TRAZODONE FAMOTIDINE
== END ==
PROVIDERS: PCP Family Medicine; Visit Provider Surgery
DX: K29.60 Other gastritis without bleeding (principal)
CPT/HCPCS: 78264; A9541

== ENCOUNTER → 2022-07-08 07:54 | Outpatient (CLI) | payer BC, SELFPAY ==
--- NOTE | 2022-07-08 07:54 | FL_ITS ---
FINAL REPORT CLINICAL HISTORY: 1.54 fluoro time GERD FINDINGS: UPPER GI WITH SBFT UPPER GI EXAM HISTORY:Gastroesophageal reflux PROCEDURE: The patient ingested barium. Effervescent crystals were also administered. Spot and overhead films were obtained. FINDINGS: The esophagus is normal. There is no hiatal hernia. There is gastroesophageal reflux to above the level of the aorta. Peristalsis is normal. The rugal fold pattern of the stomach is normal. The duodenal bulb is normal. FLUOROSCOPY TIME: 1 minute 54 seconds IMPRESSION: Gastroesophageal reflux to above the aortic arch. Otherwise, unremarkable upper GI. SBFT: The claims customer service representative film is normal. There is no evidence of obstruction. The mucosal fold pattern is normal. The terminal ilium is normal. IMPRESSION: Normal SBFT. Films reviewed , interpreted and dictated by Dr. Jones Transcribed by Pierce Avila PA-C. Reviewed, Interpreted and Dictated by Dorian Jones III, MD Transcribed by JOSHUA Bailey Authenticated and [facility]
== END ==
PROVIDERS: PCP Family Medicine; Visit Provider Surgery
DX: K29.60 Other gastritis without bleeding (principal)
CPT/HCPCS: 74246; 74248

== ENCOUNTER → 2023-02-13 15:49 | Outpatient (CLI) | payer BC, SELFPAY ==
--- NOTE | 2023-02-13 15:49 | MM_ITS ---
PROCEDURE INFORMATION: Exam: MG Bilateral Screening 3D Mammography Exam date and time: 02/13/2023 3:41 PM Age: 47 years old Clinical indication: Screening examination TECHNIQUE: Imaging protocol: Bilateral Screening tomosynthesis and 2D mammography including computer-aided detection (CAD) when performed. COMPARISON: 1. MG MM DIG SCREENING MAMM BI W/CAD 02/11/2022 9:42 AM 2. MG MM DIG SCREENING MAMM BI W/CAD 02/10/2021 2:00 PM FINDINGS: MAMMOGRAPHY: Breast composition: There are scattered areas of fibroglandular density. Mass: None. Architectural distortion: None. Calcifications: No suspicious calcifications. Asymmetric density: None. Skin thickening: None. Axillary adenopathy: None. IMPRESSION: No mammographic evidence of malignancy. Annual screening is recommended unless otherwise clinically indicated. ASSESSMENT: BI-RADS Category 1: Negative
== END ==
PROVIDERS: PCP Internal Medicine; Visit Provider Nurse Practitioner Obstetrics & Gynecology
DX: Z12.31 Encounter for screening mammogram for malignant neoplasm of breast (principal)
CPT/HCPCS: 77063; 77067

== ENCOUNTER 2023-12-07 10:32 | Outpatient (CLI) | payer BC, SELFPAY ==
--- NOTE | 2023-12-07 10:35 | XR_ITS ---
FINAL REPORT CLINICAL HISTORY: right foot pain COMPARISON: None FINDINGS: RIGHT FOOT 3 views of the right foot were obtained. There is no acute fracture or dislocation. Visualized joint spaces are normally aligned. Soft tissues are unremarkable. IMPRESSION: No acute bony abnormality. Reviewed, Interpreted and Dictated by Davion Perla MD Transcribed by Helen Mercedes Authenticated and [facility]
== END 2023-12-07 23:59 | disposition home or self-care (01) ==
LOC: RAD 10:33
PROVIDERS: PCP Nurse Practitioner Family; Visit Provider Nurse Practitioner Family
DX: M79.671 Pain in right foot (principal)
CPT/HCPCS: 73630

== ENCOUNTER 2024-03-28 15:48 | Outpatient (CLI) | payer BC, SELFPAY ==
--- NOTE | 2024-03-28 15:49 | MM_ITS ---
PROCEDURE INFORMATION: Exam: MG Bilateral Screening 3D Mammography Exam date and time: 03/28/2024 3:40 PM Age: 48 years old Clinical indication: Screening mammogram TECHNIQUE: Imaging protocol: Bilateral Screening tomosynthesis and 2D mammography including computer-aided detection (CAD) when performed. COMPARISON: 1. MG MM DIG SCREENING MAMM BI W/CAD 02/13/2023 3:41 PM 2. MG MM DIG SCREENING MAMM BI W/CAD 02/11/2022 9:42 AM 3. MG MM DIG SCREENING MAMM BI W/CAD 02/10/2021 2:00 PM 4. MG MM DIG MAMM DX UNILAT RT CAD 08/12/2020 1:55 PM FINDINGS: MAMMOGRAPHY: Breast composition: There are scattered areas of fibroglandular density. Mass: None. Architectural distortion: No new or suspicious architectural distortion. Calcifications: No new or suspicious calcifications are present Asymmetric density: No new or suspicious asymmetric density is present Skin thickening: None. Axillary adenopathy: None. IMPRESSION: No mammographic evidence of malignancy. Recommend annual screening mammography unless otherwise clinically indicated. ASSESSMENT: BI-RADS category 1: Negative.
== END 2024-03-28 23:59 | disposition home or self-care (01) ==
LOC: RAD 15:48
PROVIDERS: PCP Nurse Practitioner Family; Visit Provider Nurse Practitioner Obstetrics & Gynecology
DX: Z12.31 Encounter for screening mammogram for malignant neoplasm of breast (principal)
CPT/HCPCS: 77063; 77067

== ENCOUNTER 2024-04-16 11:24 | Outpatient (POV) | payer BC, SELFPAY | END 2024-04-16 23:59 | disposition home or self-care (01) | LOC: SC 11:24 | PROVIDERS: Visit Provider Dermatology | DX: Z00.00 Encounter for general adult medical examination without abnormal findings (principal) ==

== ENCOUNTER 2024-04-18 10:04 | Outpatient (CLI) | payer BC, SELFPAY ==
[2024-04-18 11:19] LABS: Basophils # 0.1 K/mm3 (0-0.2); Basophils % 1.1 % (0.1-2.0); Eosinophils # 0.1 K/mm3 (0.0-0.4); Eosinophils % 1.1 % (0.1-12.0); Hematocrit 39.9 % (37.0-47.0); Hemoglobin 12.9 g/dL (12.2-16.2); Lymphocytes # 1.1 K/mm3 (0.7-4.5); Lymphocytes % 21.8 % (10-50); Mean Corpuscular HGB Conc 32.4 g/dL (31.8-35.4); Mean Corpuscular Hemoglobin 28.6 pg (27.0-31.2); Mean Corpuscular Volume 88.3 fl (81-99); Monocytes # 0.4 K/mm3 (0.1-1.0); Monocytes % 7.5 % (1.7-9.3); Neutrophils # 3.6 K/mm3 (1.8-7.8); Neutrophils % 68.5 % (37.0-80.0); Platelet Count 432 K/mm3 (142-424); Red Blood Count 4.51 M/mm3 (4.20-5.40); Red Cell Distribution Width 14.1 % (11.5-17.5); White Blood Count 5.2 K/mm3 (4.8-10.8)
[2024-04-18 11:40] LABS: Alanine Aminotransferase 10 U/L (12-78); Albumin Level 4.1 g/dl (3.5-5.0); Albumin/Globulin Ratio 1.4 (1.1-1.8); Alkaline Phosphatase 84 U/L (38-126); Anion Gap 6.3 mEq/L (5-15); Aspartate Amino Transferase 18 U/L (14-36); Bilirubin,Total 0.5 mg/dl (0.2-1.3); Blood Urea Nitrogen 15 mg/dl (7-17); Calcium 9.4 mg/dl (8.4-10.2); Carbon Dioxide 26 mmol/L (22.0-30.0); Chloride 108 mmol/L (98-107); Chol/HDL Ratio 3.8 (1-3.5); Cholesterol 177 mg/dl (140-200); Estimated Glomerular Filt Rate 89 ml/min (>60); GFR (African American) 108 ML/MIN (>60); Globulin 2.9 g/dL (1.3-3.2); Glucose 80 mg/dl (74-100); HDL Cholesterol 47 mg/dl (40-60); Potassium 4.3 mmoL/L (3.5-5.1); Sodium 136 mmol/L (136-145); Triglycerides 85 mg/dl (30-150); VLDL Cholesterol 17 mg/dL (0-40)
[2024-04-18 11:51] LABS: Direct LDL Cholesterol 102.53 mg/dL (100-129)
[2024-04-18 11:57] LABS: 25-OH Vitamin D, Total 36.8 ng/mL (30-100)
[2024-04-18 13:25] LABS: Thyroid Stimulating Hormone 0.63 uIU/mL (0.465-4.68)
== END 2024-04-18 23:59 | disposition home or self-care (01) ==
LOC: LAB 10:04
PROVIDERS: PCP Nurse Practitioner Family; Visit Provider Nurse Practitioner Obstetrics & Gynecology
DX: Z00.00 Encounter for general adult medical examination without abnormal findings (principal)
CPT/HCPCS: 36415; 80050; 80053; 80061; 82306; 84443; 85025

== ENCOUNTER 2025-05-27 15:16 | Outpatient (CLI) | payer BC, SELFPAY ==
--- NOTE | 2025-05-27 15:30 | MM_ITS ---
PROCEDURE INFORMATION: Exam: MG Bilateral Screening 3D Mammography Exam date and time: 05/27/2025 3:30 PM Age: 49 years old Clinical indication: Screening examination. TECHNIQUE: Imaging protocol: Bilateral Screening tomosynthesis and 2D mammography including computer-aided detection (CAD) when performed. COMPARISON: 1. MG MM DIG SCREENING MAMM BI W/CAD 03/28/2024 3:40 PM 2. MG MM DIG SCREENING MAMM BI W/CAD 02/13/2023 3:41 PM FINDINGS: MAMMOGRAPHY: Breast composition: There are scattered areas of fibroglandular density. Mass: None. Architectural distortion: None. Calcifications: No suspicious calcifications. Asymmetric density: None. Skin thickening: None. Axillary adenopathy: None. IMPRESSION: No mammographic evidence of malignancy. Annual screening is recommended unless otherwise clinically indicated. ASSESSMENT: BI-RADS Category 1: Negative.
--- OUTSIDE RECORDS SUMMARY | 2025-05-27 19:19 | XMS_ITS | Data Portability ---
Author Organization [facility] [place] [facility] Address [address] [facility] [address] [place] [address] Assessment No assessment recorded. Plan of Treatment Reminders Order Date Submit Date Provider Last Modified By Organization Details Last Modified Time Details Appointments None recorded. Lab None recorded. Referral None recorded. Procedures None recorded. Surgeries None recorded. Imaging XR, cervical spine, 4 or 5 view 2022 023 [facility], [address] [place] [address], [phone], 3 09:33:47 Medication Orders gabapentin 100 mg capsule 2022 023 [facility], [address], [address], 3 16:09:42 Medrol (Yuriy) 4 mg tablets in a dose pack 2022 023 [facility], [address], [address], 3 16:09:46 Patient TargetsNo targets recorded. Patient InstructionsNo instructions recorded. Reason for Referral None Reported. Results Created Date Observation Date Name Description Value Unit Range Abnormal Flag Note LastModifiedBy Organization Detail LastModifiedTime 07/28/19 23 07/27/2022 XR, cervi amita spine , 4 or 5 view [facility] [address] [place] [address] Patien t Name: BRYCE Wilks t : 976 Patien t 03 Orderi ng Provid er: ADDI COREA EXAM DATE: 2022 EXAM: XR CERVIC AL SPINE AP/LAT /FLEX/ EXT CLINIC AL INFORM ATION: Neck pain. IMAGES PROVID ED: Latera l views of the cervic al spine in flexio n and extens ion. COMPAR KENIA: None. FINDIN GS: FINDIN GS: Verteb ral body height s are normal . C4-C7 disc space reduct ion is seen with anteri or and latera l osteop hytes. No abnorm ality of alignm ent is seen. No instab ility is seen on flexio n or extens ion. No radiog raphic eviden ce of injury is noted. IMPRES MISTY: Degene rative change s of the cervic al spine. No instab ility. Interp reted By: Bret Short MD Electr onical ly Signed By: Bret Short MD on 023 9:[address] [facility] [address], [phone], 07/30/2022 22:19:31 Result Notes Documentation Provider Name and Address Organization Details Recorded Time Xr, Cervical Spine, 4 Or 5 View : [address] [address] Patient Name: BRYCE ALCAZAR Patient : 1975 Patient Ordering Provider: ADDI COREA EXAM DATE: 07/27/2022 EXAM: XR CERVICAL SPINE AP/LAT/FLEX/EXT CLINICAL INFORMATION: Neck pain. IMAGES PROVIDED: Lateral views of the cervical spine in flexion and extension. COMPARISON: None. FINDINGS: FINDINGS: Vertebral body heights are normal. C4-C7 disc space reduction is seen with anterior and lateral osteophytes. No abnormality of alignment is seen. No instability is seen on flexion or extension. No radiographic evidence of injury is noted. IMPRESSION: Degenerative changes of the cervical spine. No instability. Interpreted By: Carlitos Short MD LEY ADDI COREA MD [address] [place] [address] [place], [phone], [facility] 07/30/2022 22:19:31 Problems Name Problem SNOMED Code Status Onset Date Resolution Date Notes Provider Name and Address Organization Details Recorded Time Rheumatoid arthritis 22183297 Active 023 SHIRLEY COREA MD [address] [place], [phone], [facility] 3 15:49:38 Problem Notes None recorded. Medical Equipment None Reported. Allergies No known drug allergies Medications Name Sig Start Date Stop Date Status Note LastModified by Organization Details LastModified Time famotidine 10 mg tablet Take 1 tablet every day by oral route. 07/27 completed Not Available Not Available Not Available trazodone 50 mg tablet Take 1 tablet every day by oral route. active Not Available Not Available No t Available Medrol (Yuriy) 4 mg tablets in a dose pack Take 1 dose pk by oral route. 2022 active Not Available Not Available Not Avai lable gabapentin 100 mg capsule Take 1 capsule every day by oral route at dinner for 30 days. 2022 active Not Available Not Available Not Avai lable folic acid 1mg po qd 07/27 completed Not Available Not Available Not Available methotrexate 20 mg q weekly 07/27 completed Not Available Not Available Not Available famotidine 40 mg twice a day active Not Available Not Available No t Available Ubrelvy 100 mg tablet Take by oral route as needed. active Not Available Not Available No t Available Vitals Date Recorded Body mass index (BMI) Body weight Body height Respiratory rate Heart rate Oxygen saturation Oxygen saturation in Arterial blood by Pulse oximetry Systolic And Diastolic Provider Name and Address Organization Details Last Updated DateTime 3 32.9 kg/m2 76543.3 3 g 157.48 cm 16 /min 80 /min 95 % 95 % 128/82 mm[Hg] Lauren Brock [facility] 3 15:54:46 Social History Question Answer Notes LastModified by Organizat ion Details LastModified Time Tobacco Smoking Status Never Smoker Lauren Brock [facility] 07/27/2022 15:53:29 What Was The Date Of Your Most Recent Tobacco Screening? 07/27/2022 [email or web address] Information not available 07/27/2022 Have You Recently Traveled Abroad? No [email or web address] Information not available 07/27/2022 Sex: Unknown Functional Status Question Answer Note LastModified by Organization D etails LastModified Time What is your level of alcohol consumption? None [email or web address] Information not available 07/27/2022 Mental Status None recorded. Family History Nothing Reported. Medical History No medical history recorded. Gynecological HistoryNo gynecological history recorded. Obstetrics History GPAL:G 0 P 0 0 0 0 Past Encounters Encounter ID Performer Location Encounter Start Date Encounter Closed Date Diagnosis/Indication Diagnosis SNOMED-CT Code Diagnosis ICD10 Code Diagnosis IMO Codes Diagnosis Note [id number] SHIRLEY COREA MD [facility] [address] [place] [address] 07/27/2022 15:39:45 07/29/2022 04:44:27 Cervical spondylosis 760523557 M47.812 46-year-ol d female with at least 12 months of neck pain. Clinically suggestive of chronic cervical strain. I did not appreciate any radicular symptoms. No myelopathy noted. She does have some feeling of crawling sensation along the trapezius with positive trigger points. Range of motion is intact. Neck flexors and extensors are normal. Deep tendon reflexes are normal. We discussed cervical strain, its etiology, and its treatment options including lifestyle modificati ons posture and gait assessment . She is working with a chiropract or for the last 12 months and I suggested her to discontinu e chiropract ic treatments . I ordered cervical spine x-ray with flexion and extension view. I also suggested her a brief course of gabapentin at bedtime 100 mg p.o. nightly for 4 weeks. I also gave her a course of steroid Dosepak. I suggested home-based exercise program along with the applicatio n of moist heat. I will contact her further after review of the x-ray. she was comfortabl e with the discussion Health Concerns Section Related Observation LastModified by Organization Adam mejía LastModified Time None Recorded Concern Status LastModified by Organization Details LastModified Time None Recorded Advance Directives Directive None Recorded Payers Insurance Date Sequence Insurance Name Policy Number Policy Herrera Covered Member ID Herrera Member ID Guarantor Name 08/11/2022 1 [place] [id number] 9 Bryce Alcazar [id number] Bryce Alcazar Notes Date Note Type Note Provider Name and Address Organization Details Recorded Time 07/27/2022 text/html ROS as noted in the HPI A very pleasant 46-year-old female seen today as a New patient for evaluation of neck pain. Symptoms are going on for more than 12 months. She is working with a chiropractor off-and-on in the last 12 months. Pains are more confined to the left lateral neck with some tightness in her muscles. She feels like an crawling sensation over the trapezius. Does not have any numbness or tingling in her left hand. Denies any loss of strength. Does not have any psoriasis. Does not have any inflammatory bowel disease. SHIRLEY COREA MD [address] [place] [address], [phone], [facility] 07/28/2022 08:02:35 OBGyn Episode No OBEpisode recorded.
== END 2025-05-27 23:59 | disposition home or self-care (01) ==
LOC: RAD 15:16
PROVIDERS: PCP Nurse Practitioner Family; Visit Provider Obstetrics & Gynecology
DX: Z12.31 Encounter for screening mammogram for malignant neoplasm of breast (principal); R92.323 Mammographic fibroglandular density, bilateral breasts
CPT/HCPCS: 77063; 77067

== ENCOUNTER 2025-06-01 16:35 | Emergency (ER) | payer BC, SELFPAY ==
[2025-06-01 16:36] VITALS: BP 116/67; PULSE 78; RESP 18; TEMP 36.6; O2SAT 100; BMI 23.8
--- OUTSIDE RECORDS SUMMARY | 2025-06-01 16:54 | XMS_ITS | Data Portability ---
Author Organization [facility] [place] [facility] Address [address] [facility] [place] [address] Assessment No assessment recorded. Plan of Treatment Reminders Order Date Submit Date Provider Last Modified By Organization Details Last Modified Time Details Appointments None recorded. Lab None recorded. Referral None recorded. Procedures None recorded. Surgeries None recorded. Imaging XR, cervical spine, 4 or 5 view 2022 023 [facility], [address] [place] [address], [phone], 3 09:33:47 Medication Orders gabapentin 100 mg capsule 2022 023 [facility], [address], [address], 3 16:09:42 Medrol (Yuriy) 4 mg tablets in a dose pack 2022 023 [facility], [address], [address], 3 16:09:46 Patient TargetsNo targets recorded. Patient InstructionsNo instructions recorded. Reason for Referral None Reported. Results Created Date Observation Date Name Description Value Unit Range Abnormal Flag Note LastModifiedBy Organization Detail LastModifiedTime 07/28/1907/27/2022 XR, cervi amita spine , 4 or 5 view [facility] [address] [place] [id number] Patien t Name: BRYCE Wilks t : [...] Bret Short MD on 023 9:[address] Radiology [address], [phone], 07/30/2022 22:19:31 Result Notes Documentation Provider Name and Address Organization Details Recorded Time Xr, Cervical Spine, 4 Or 5 View : [address] [address] Patient Name: BRYCE ALCAZAR Patient : 1975 [...] Carlitos Short MD LEY ADDI COREA MD [address] [place] [address] [place], [address], [facility] 07/30/2022 22:19:31 Problems Name Problem SNOMED Code Status Onset Date Resolution Date Notes Provider Name and Address Organization Details Recorded Time Rheumatoid arthritis 13640894 [place] 023 [place] [address] [place] [address], [phone], [facility] 3 15:49:38 Problem Notes None recorded. Medical [...] height Respiratory rate Heart rate Oxygen saturation Systolic And Diastolic Provider Name and Address Organization Details Last Updated DateTime 3 32.9 kg/m2 76261.3 3 g 157.48 cm 16 /min 80 /min 95 % 128/82 mm[Hg] Lauren Brock [facility] 3 15:54:46 Social History Question Answer Notes LastModified by Organizat ion Details LastModified Time Tobacco Smoking Status Never Smoker Lauren kumar [facility] 07/27/2022 15:53:29 What Was The Date Of Your Most Recent Tobacco Screening? 07/27/2022 Information not available 07/27/2022 Have You Recently Traveled Abroad? No Information not available 07/27/2022 Sex: Unknown Functional Status Question Answer Note LastModified by Organization D etails LastModified Time What is your level of alcohol consumption? None [email or web address] Information not available 07/27/2022 Mental Status None recorded. Family History Nothing Reported. Medical History No medical history recorded. Gynecological HistoryNo gynecological history recorded. Obstetrics History GPAL:G 0 P 0 0 0 0 Past Encounters Encounter ID Performer Location Encounter Start Date Encounter Closed Date Diagnosis/Indication Diagnosis SNOMED-CT Code Diagnosis ICD10 Code Diagnosis IMO Codes Diagnosis Note [id number] SHIRLEY COREA MD [facility] [address] [place] [address] 07/27/2022 15:39:45 07/29/2022 04:44:27 Cervical spondylosis [id number] M47.812 46-year-ol d female with at least [...] ID Guarantor Name 08/11/2022 1 [place] [id number] 9 Bryce Alcazar [id number] Bryce Alcazar Notes Date Note Type [...] any inflammatory bowel disease. SHIRLEY COREA MD [address] [place] [address], [phone], [facility] 07/28/2022 08:02:35 OBGyn Episode No OBEpisode recorded.
--- NOTE | 2025-06-01 17:01 | XR_ITS ---
PROCEDURE INFORMATION: Exam: XR Left Foot Exam date and time: 06/01/2025 4:59 PM Age: 49 years old Clinical indication: Injury or trauma; Other: Dropped large trash can on foot; Blunt trauma; Left; Additional info: 3rd toe contusion, 2nd toe abrasion TECHNIQUE: Imaging protocol: Radiologic exam of the left foot. Views: 3 or more views. COMPARISON: No relevant prior studies available. FINDINGS: Bones/joints: Comminuted nondisplaced fracture of the distal and proximal aspects of the 3rd distal phalanges. No other fracture identified. Soft tissues: Normal. IMPRESSION: 3rd distal phalangeal fractures.
--- NOTE | 2025-06-01 17:08 | ED_ITS ---
<Statement entered by Meliton Cunningham DO - 06/01/25 23:29> I was consulted by the TADEO, and we discussed the complexity of problems being addressed. I approved the treatment and management plan for this patient's care in the emergency department, thus performing a substantive portion of the medical decision making. Meliton Cunningham DO This is Dr. Cunningham. I did independently evaluate this patient as well. She states she dropped a metal trash can on to her foot and it impacted her third toe. On evaluation of the feet and toes, she has ecchymosis of the third digits as well as an abrasion that is a couple of centimeters proximal to the nail. X- rays do show fracture of the distal phalanx of the toe there does not seem to be any overt traumatic injury of the nail. She does have nail korean in place, however the proximal nail remains intact and the place of impact was over the more proximal region of the phalanx. Therefore I do not feel that she has an open fracture with nailbed injury. We ended up daniela taping the toe and have instructed her to weight-bear as tolerated. All questions were answered and all parties were agreeable with discharge Discharge Plan Disposition Patient Disposition: Home, Self-Care Condition: Good Prescriptions Prescriptions: No Action trazodone 50 mg tablet 50 mg PO HS Qty: 90 3RF levocetirizine 5 mg tablet 5 mg PO DAILY Qty: 90 3RF Ubrelvy 100 mg tablet 100 mg PO BID PRN (Reason: migraine headache) Qty: 60 5RF Rx Instructions: If needed, may take second dose at least 2 hours after initial dose. MDD 200mg/24hr. Referrals Follow up/Referrals: Luis A Chisholm DO [Staff Physician, Orthopedics] - See instructions Jolanta Thomas APRN [Primary Care Provider, Family Practice] - See instructions Activity Restrictions/Add. Instructions Additional Instructions/Restrictions: You were seen for a toe fracture. Please follow-up with orthopedics. Return here if you have severe pain, increased swelling or discoloration. Clinical Impressions Clinical Impression: Closed fracture of toe Instructions Patient Instructions: DI for Toe Fracture Print Language Print Language: Bulgarian Discharge ED Provider: Meliton Cunningham General Adult HPI General Chief complaint: PAIN Stated complaint: AO: lt 3rd toe, pain/swelling diff. walking Time Seen by Provider: 06/01/25 16:43 Mode of Arrival: Ambulatory Source of Information: Patient Description of Symptoms (Recalled from ER Triage Doc. by RN): pain to left third toe after dropping garbage can on foot. bruising noted History of Present Illness HPI narrative: Patient presents complaining of left third toe pain. She reports that she was emptying a trash can on her foot. She reports bruising, swelling, decreased range of motion. She has an abrasion to her second toe as well. She did take Tylenol 45 minutes prior to arrival and has applied ice. MD complaint: Toe pain Onset (ago): unknown (jpa) Location: left and lower extremity Radiation: non-radiation Severity: moderate Consistency: constant Relieving factors: none Exacerbating factors: movement Associated symptoms: negative fever/chills or nausea/vomiting Treatments prior to arrival: other (tylenol) Related Data Previous Rx's ?Medication ?Instructions ?Recorded ubrogepant 100 mg tablet (Ubrelvy) 100 mg PO BID PRN m igraine 06/10/24 headache #60 tabs levocetirizine 5 mg tablet 5 mg PO DAILY #90 tabs 12/08 01/01 trazodone 50 mg tablet 50 mg PO HS #90 tabs 5 Allergies Allergy/AdvReac Type Severity Reaction Status Date / Time No Known Allergies Allergy Verified 12/23/24 11:40 [facility] Disclaimer: The information contained in this section may have been updated after the patient was seen, as this information can be updated by other users. Medical History (Updated 06/01/25 @ 18:15 by JOSHUA Rivas) Migraine Insomnia Cholelithiasis BMI 32.0-32.9,adult Right foot pain Sinusitis Metatarsalgia of right foot Acute middle ear effusion Gastroparesis Vomiting Chronic GERD UTI (urinary tract infection) Surgical History History of esophagogastroduodenoscopy (EGD) History of colonoscopy History of conization of cervix Family History Mother No significant family history Sister Stroke Social History Smoking Status: Never smoker alcohol intake: never substance use type: denies use current occupational status: employed Travel in the last 8 weeks?: None housing: house current occupation: teacher caffeine: Yes Have you lived/traveled outside [place] in past 30 days?: No Contact w/someone who lives/traveled outside [place] past 30 days?: No Exposure to someone with infectious disease in past 14 days?: No Do you have a fever (greater than 100.4 F or 38 C)?: No Have you tested positive for COVID-19?: No Exposed to someone with COVID-19 in past 14 days?: No Do you have a sore throat?: No Do you have a cough?: No Do you have any weakness?: No Do you have any diarrhea?: No Are you experiencing any unusual bleeding?: No Do you have any muscle aches/pain?: No Do you have any abdominal pain?: No Are you experiencing loss of taste or smell?: No Other Medical History Have you received the Flu Vaccine for this season: No Have you received the Pneumonia Vaccine: No ROS Obtained: Yes Systems reviewed as appropriate & no additional complaints except as documented Physical Exam General General appearance: alert and in no apparent distress Head Head exam: atraumatic and normocephalic Eye Eye exam: Present normal appearance and EOMI Chest Chest inspection: Present symmetric chest wall rise Respiratory Respiratory exam: Present normal lung sounds bilaterally; Absent wheezes or st ridor Cardiovascular Cardiovascular exam: Present regular rate and normal rhythm; Absent systolic murmur Extremities Exam Extremities exam: Present other (Left 3rd toe edema, bruising, tenderness. She has an abrasion to the 2nd toe as well. ) Neurological Exam Neurological exam: Present alert and oriented X3 Psychiatric Psychiatric exam: Present normal affect and normal mood Skin Skin exam: Present warm, dry and intact Medical Decision Making Medical Records Screening: Per USPSTF and CDC recommendations, given the prevalence of disease in our region, it is our hospital?s policy to screen for HIV and viral Hepatitis for all patients aged 18 and over and those with ongoing risk factors. Srinivas Inquiry Pt receiving controlled substance: No Vital Signs: 06/01/25 16:36 06/01/25 18:23 Temperature 97.8 F 98.0 F Temperature Source Oral Oral Pulse Rate 70 Pulse Rate [Radial] 78 Respiratory Rate 18 18 Blood Pressure 114/70 Blood Pressure [Right Arm] 116/67 Blood Pressure Mean [Right Arm] 83 Blood Pressure Source Automatic Cuff Blood Pressure Source [Right Arm] Automatic Cuff Blood Pressure Position Sitting Blood Pressure Position [Right Arm] Sitting 02 Sat by Pulse Oximetry 100 Oxygen Delivery Method Room Air Room Air Orders (Tests/Meds): ED MEDICATIONS Discontinued Medications Generic Name Dose Route Start Last Admin Trade Name Freq PRN Reason Stop Dose Admin Tetanus/Reduced Diphtheria/Acell Pertussis 0.5 ml 06/01/25 17:01 06/01/25 17:27 Tet/Diphth/Pert-Adult 0.5ml Syringe IM 06/01/25 17:02 0.5 ml .ONCE ONE Administration ORDERS Category Date Time Status Foot XR left minimum 3 views [XR foot LT min 3V] Stat Exams 06/01/25 17:01 Completed Medical Decision Narrative: In summary patient is a 49-year-old who presents the emergency department for evaluation of toe pain. Patient is hemodynamically stable upon arrival, afebrile. Third toe has tenderness, edema, contusion on exam as well as an abrasion to the second toe. Differential diagnosis includes fracture, contusion, abrasion. Initial workup will be conducted with x-ray. Initial inventions include tetanus vaccine. Initial workup reviewed by me fracture of the proximal and distal aspect of the distal phalanx. Affected digits daniela taped by RN. Given this patient is appropriate for discharge home at this time and will be referred to orthopedic. Foot Xray: IMPRESSION: 3rd distal phalangeal fractures. Critical Care Critical Care Time Critical Care Time: No
[2025-06-01] MEDS: TET/DIPHTH/PERT-ADULT 0.5ML SYRINGE 0.5 ML IM (17:27)
[2025-06-01 18:23] VITALS: BP 114/70; PULSE 70; RESP 18; TEMP 36.7; O2SAT 99
== END 2025-06-01 18:31 | disposition home or self-care (01) ==
PROVIDERS: Emergency Provider Student in an Organized Health Care Education/Training Program; PCP Nurse Practitioner Family
DX: S92.512A Displaced fracture of proximal phalanx of left lesser toe(s), initial encounter for closed fracture (principal); S92.532A Displaced fracture of distal phalanx of left lesser toe(s), initial encounter for closed fracture; W20.8XXA Other cause of strike by thrown, projected or falling object, initial encounter
CPT/HCPCS: 73630; 90471; 90715; 99283

== ENCOUNTER 2025-06-18 15:13 | Outpatient (CLI) | payer BC, SELFPAY ==
--- NOTE | 2025-06-18 15:18 | XR_ITS ---
FINAL REPORT TECHNIQUE: Left foot 3 views CLINICAL HISTORY: Evaluation of Left 3rd toe fracture COMPARISON: 06/01/2025 FINDINGS: LEFT FOOT: 3 images of the left foot were obtained. There is a fracture of the distal phalanx of the third toe, also seen on the prior exam of 06/01/2025. There has been mild progressive bony resorption of the fracture line of the distal phalanx, and the fracture itself is nondisplaced. The joint spaces are intact. There is no soft tissue abnormality identified. IMPRESSION: Fracture of the distal phalanx third toe, with mild progressive bony resorption of the fracture line, the fracture fragments themselves nondisplaced. Reviewed, Interpreted and Dictated by Davion Perla MD Transcribed by Arlen Munguia Authenticated and [facility]
== END 2025-06-18 23:59 | disposition home or self-care (01) ==
LOC: RAD 15:14
PROVIDERS: PCP Nurse Practitioner Family; Visit Provider Podiatrist
DX: S92.535D Nondisplaced fracture of distal phalanx of left lesser toe(s), subsequent encounter for fracture with routine healing (principal); X58.XXXD Exposure to other specified factors, subsequent encounter
CPT/HCPCS: 73630